=== PATIENT | female | born 1960 | race Caucasian/White ===

== ENCOUNTER 2023-04-01 06:43 | Day surgery (SDC) | payer BC ==
[~2023-04-01] VITALS: Ht 157.5 cm; Wt 77.1 kg
[~2023-04-01 06:43] MED LIST: ALBU8.5H INH; HYDR12.55 PO; LOSA50TA28 PO; SITA50TAB PO; THERTAB52 PO
[2023-04-01] MEDS ORDERED: LR 1,000 ML IV SCH (07:20)
[2023-04-01] MEDS ORDERED: GLUCOSE 4GM CHEW TABLET PO PRN (07:20)
[2023-04-01] MEDS ORDERED: GLUCAGON INJ 1MG VIAL SC PRN (07:20)
[2023-04-01] MEDS ORDERED: DEXTROSE 50% 50ML SYRINGE IV PRN (07:20)
[2023-04-01] MEDS ORDERED: INSULIN LISPRO (NovoLOG) PER UNIT SC PRN (07:20)
[2023-04-01] MEDS ORDERED: SUGAMMADEX SODIUM 500 MG/5 ML VIAL (BRIDION) As Ordered ONE (07:30)
[2023-04-01] MEDS ORDERED: propofoL 200 MG/20 ML VIAL As Ordered ONE (07:30)
[2023-04-01] MEDS ORDERED: ROCURONIUM BROMIDE 50MG/5ML VIAL As Ordered ONE (07:30)
[2023-04-01] MEDS ORDERED: GLYCOPYRROLATE INJ 0.2 MG/ML 2 ML VIAL As Ordered ONE (07:30)
[2023-04-01] MEDS ORDERED: ONDANSETRON 4MG 2ML VIAL As Ordered ONE (07:30)
[2023-04-01] MEDS ORDERED: MIDAZOLAM INJ 2MG/2ML VIAL As Ordered ONE (07:32)
[2023-04-01] MEDS ORDERED: fentaNYL 100 MCG/2 ML INJECTION As Ordered ONE (07:33)
[2023-04-01] MEDS ORDERED: LIDOCAINE 2% 100MG/5ML SDV (FOR ANES.) As Ordered ONE (07:34)
[2023-04-01] MEDS ORDERED: EPINEPHrine 1MG/10ML SYRINGE 1.5IN As Ordered ONE (08:09)
[2023-04-01] MEDS ORDERED: THROMBIN 5,000 UNITS VIAL As Ordered ONE (08:09)
[2023-04-01] MEDS ORDERED: CETACAINE SPRAY 5GM As Ordered ONE (08:09)
[2023-04-01] MEDS ORDERED: PHENYLephrine 500MCG 5ML (100MCG/ML) SYRINGE As Ordered ONE ×2 (08:52→09:19)
[2023-04-01] MEDS ORDERED: ALBUTEROL SULFATE 2.5MG/0.5ML INH NEB SOLN INH ONE (09:20)
[2023-04-01] MEDS ORDERED: ONDANSETRON 4MG 2ML VIAL IV PRN (09:20)
[2023-04-01] MEDS ORDERED: oxyCODONE 5MG TAB PO PRN (09:20)
[2023-04-01] MEDS ORDERED: METOCLOPRAMIDE INJ 10MG/2ML VIAL IV PRN (09:20)
[2023-04-01 10:54] VITALS: BP 141/65; TEMP 98.3; O2SAT 96
== END 2023-04-01 11:32 | disposition home or self-care (01) ==
LOC: M SDC 06:43
PROVIDERS: ATTEND Internal Medicine Pulmonary Disease
DX: C34.12 Malignant neoplasm of upper lobe, left bronchus or lung (principal); C77.9 Secondary and unspecified malignant neoplasm of lymph node, unspecified; F17.218 Nicotine dependence, cigarettes, with other nicotine-induced disorders; I10 Essential (primary) hypertension; E78.5 Hyperlipidemia, unspecified; E11.9 Type 2 diabetes mellitus without complications; Z79.51 Long term (current) use of inhaled steroids; Z79.899 Other long term (current) drug therapy; Z88.8 Allergy status to other drugs, medicaments and biological substances
CPT/HCPCS: 31625; 31653; 71045; 88173; 88305; J0171; J1100; J2250; J2371; J2405; J2765; J3010

== ENCOUNTER → 2023-04-13 | Outpatient (CLI) | payer BC | LOC: M PLARAD 08:53 | PROVIDERS: ATTEND Internal Medicine Pulmonary Disease | DX: R91.8 Other nonspecific abnormal finding of lung field (principal) | CPT/HCPCS: 78815; A9552 ==

== ENCOUNTER → 2023-04-16 | Outpatient (CLI) | payer BC | LOC: M RAD 08:09 | PROVIDERS: ATTEND Internal Medicine Pulmonary Disease | DX: C34.12 Malignant neoplasm of upper lobe, left bronchus or lung (principal) ==

== ENCOUNTER → 2023-04-30 | Outpatient (CLI) | payer BC ==
[~2023-04-30] MED LIST changes: +ATIV1TAB10 PO; +FAMO20TA5 PO; +ONDA-84 PO; +PROC10TA5 PO
== END ==
LOC: M ONCR 12:33
PROVIDERS: ATTEND General Practice
DX: C34.12 Malignant neoplasm of upper lobe, left bronchus or lung (principal); F17.210 Nicotine dependence, cigarettes, uncomplicated; Z71.2 Person consulting for explanation of examination or test findings; Z63.4 Disappearance and death of family member; Z80.1 Family history of malignant neoplasm of trachea, bronchus and lung; Z79.899 Other long term (current) drug therapy; Z80.3 Family history of malignant neoplasm of breast; Z80.49 Family history of malignant neoplasm of other genital organs; Z80.8 Family history of malignant neoplasm of other organs or systems; Z88.1 Allergy status to other antibiotic agents; Z92.21 Personal history of antineoplastic chemotherapy

== ENCOUNTER → 2023-05-22 | Outpatient (CLI) | payer BC ==
[~2023-05-22] VITALS: Ht 157.5 cm; Wt 77.1 kg
[~2023-05-22] MED LIST changes: +LIDOCAINE 1% MDV 20ML VIAL As Ordered ONE; +LIDOCAINE W/EPINEPHRINE 1% 20ML VIAL As Ordered ONE; +MIDAZOLAM INJ 2MG/2ML VIAL As Ordered ONE; +ceFAZolin 2 GM/D5W 50 ML IV BAG As Ordered ONE; +fentaNYL 100 MCG/2 ML INJECTION As Ordered ONE
[2023-05-22 07:29] VITALS: TEMP 98.6
[2023-05-22] MEDS: NS 1,000 ML IV SCH (08:16)
[2023-05-22] MEDS: ceFAZolin SOD 2 GM in IV 1 EA IV ONE (08:16)
[2023-05-22 09:45] VITALS: BP 154/76; O2SAT 91
== END ==
LOC: M IRPRO 07:13
PROVIDERS: ATTEND Internal Medicine Medical Oncology
DX: C34.90 Malignant neoplasm of unspecified part of unspecified bronchus or lung (principal)
CPT/HCPCS: 36561; 99152; 99153; J0690; J2250; J3010

== ENCOUNTER → 2023-06-04 | Outpatient (RCR) | payer BC ==
[~2023-06-04] MED LIST changes: -LIDOCAINE 1% MDV 20ML VIAL As Ordered ONE; -LIDOCAINE W/EPINEPHRINE 1% 20ML VIAL As Ordered ONE; -MIDAZOLAM INJ 2MG/2ML VIAL As Ordered ONE; -ceFAZolin 2 GM/D5W 50 ML IV BAG As Ordered ONE; -fentaNYL 100 MCG/2 ML INJECTION As Ordered ONE
== END ==
LOC: M ONCR 05-08 10:28
PROVIDERS: ATTEND General Practice
DX: Z51.0 Encounter for antineoplastic radiation therapy (principal); C34.12 Malignant neoplasm of upper lobe, left bronchus or lung

== ENCOUNTER 2023-06-30 09:23 | Outpatient (RCR) | payer BC ==
[~2023-06-30 09:23] MED LIST changes: +LIDO30CR18 TOP
[2023-07-06] MEDS ORDERED: MAGN400T35 PO (15:09)
== END 2023-07-05 ==
LOC: M ONCR 09:23
PROVIDERS: ATTEND General Practice
DX: Z51.0 Encounter for antineoplastic radiation therapy (principal); C34.12 Malignant neoplasm of upper lobe, left bronchus or lung
CPT/HCPCS: 77336; 77386; G0463

== ENCOUNTER → 2023-07-23 | Outpatient (CLI) | payer BC ==
[~2023-07-23] MED LIST changes: +MAGN400T35 PO; +PROHANCE 279.3MG/ML 15ML VIAL As Ordered ONE
== END ==
LOC: M RAD 08:36
PROVIDERS: ATTEND General Practice
DX: C34.12 Malignant neoplasm of upper lobe, left bronchus or lung (principal)

== ENCOUNTER → 2023-10-30 | Outpatient (CLI) | payer MEDICARE, BC ==
[~2023-10-30] MED LIST changes: +ASPI81CH33 PO; +ATOR40TA75; +NICO21DI37; -PROHANCE 279.3MG/ML 15ML VIAL As Ordered ONE; +SERT25TA21
== END ==
LOC: M ONCR 13:16
PROVIDERS: ATTEND General Practice
DX: C34.12 Malignant neoplasm of upper lobe, left bronchus or lung (principal); I69.954 Hemiplegia and hemiparesis following unspecified cerebrovascular disease affecting left non-dominant side; Z79.82 Long term (current) use of aspirin; Z79.899 Other long term (current) drug therapy; Z87.891 Personal history of nicotine dependence; Z88.8 Allergy status to other drugs, medicaments and biological substances; Z92.21 Personal history of antineoplastic chemotherapy; Z92.3 Personal history of irradiation

== ENCOUNTER → 2024-01-22 | Outpatient (CLI) | payer BC, MEDICARE ==
[~2024-01-22] MED LIST changes: +LIDOCAINE 1% MDV 20ML VIAL As Ordered ONE; +MIDAZOLAM INJ 2MG/2ML VIAL As Ordered ONE; +NS 1,000 ML IV SCH; +ceFAZolin 2 GM/D5W 50 ML IV BAG As Ordered ONE; +ceFAZolin SOD 2 GM in IV 1 EA IV ONE; +fentaNYL 100 MCG/2 ML INJECTION As Ordered ONE
[2024-01-22 12:10] VITALS: TEMP 97.8
[2024-01-22 14:50] VITALS: BP 178/84; O2SAT 95
== END ==
LOC: M IRPRO 12:02
PROVIDERS: ATTEND Internal Medicine Medical Oncology
DX: C34.90 Malignant neoplasm of unspecified part of unspecified bronchus or lung (principal)
CPT/HCPCS: 36590; 99152; J0690; J2250; J3010

== ENCOUNTER → 2024-03-25 | Outpatient (CLI) | payer BC, MEDICARE ==
[~2024-03-25] MED LIST changes: +FAMO1TAB11; -LIDOCAINE 1% MDV 20ML VIAL As Ordered ONE; -MIDAZOLAM INJ 2MG/2ML VIAL As Ordered ONE; -NS 1,000 ML IV SCH; +SERT50TA29; -ceFAZolin 2 GM/D5W 50 ML IV BAG As Ordered ONE; -ceFAZolin SOD 2 GM in IV 1 EA IV ONE; -fentaNYL 100 MCG/2 ML INJECTION As Ordered ONE
== END ==
LOC: M ONCR 14:18
PROVIDERS: ATTEND General Practice
DX: C34.12 Malignant neoplasm of upper lobe, left bronchus or lung (principal); Z87.891 Personal history of nicotine dependence; Z92.21 Personal history of antineoplastic chemotherapy; Z92.3 Personal history of irradiation; Z88.1 Allergy status to other antibiotic agents; Z79.82 Long term (current) use of aspirin; Z79.899 Other long term (current) drug therapy; Z79.84 Long term (current) use of oral hypoglycemic drugs

== ENCOUNTER → 2024-04-19 | Outpatient (CLI) | payer MEDICARE | LOC: M PLARAD 13:25 | PROVIDERS: ATTEND Internal Medicine Medical Oncology | DX: C34.12 Malignant neoplasm of upper lobe, left bronchus or lung (principal) | CPT/HCPCS: 78815; A9552 ==

== ENCOUNTER → 2024-05-05 | Outpatient (CLI) | payer MEDICARE | LOC: M ONCR 10:22 | PROVIDERS: ATTEND General Practice | DX: C34.12 Malignant neoplasm of upper lobe, left bronchus or lung (principal); Z87.891 Personal history of nicotine dependence; Z92.21 Personal history of antineoplastic chemotherapy; Z92.3 Personal history of irradiation; Z86.73 Personal history of transient ischemic attack (TIA), and cerebral infarction without residual deficits; Z88.1 Allergy status to other antibiotic agents; Z79.82 Long term (current) use of aspirin; Z79.899 Other long term (current) drug therapy; Z79.84 Long term (current) use of oral hypoglycemic drugs ==

== ENCOUNTER 2024-06-01 15:15 | Outpatient (RCR) | payer MEDICARE ==
[2024-06-01] MEDS ORDERED: FLUC100T3 PO (15:40)
== END 2024-06-03 ==
LOC: M ONCR 15:15
PROVIDERS: ATTEND General Practice
DX: Z51.0 Encounter for antineoplastic radiation therapy (principal); C34.12 Malignant neoplasm of upper lobe, left bronchus or lung

== ENCOUNTER 2024-06-15 07:25 | Day surgery (SDC) | payer MEDICARE ==
[~2024-06-15] VITALS: Ht 154.9 cm; Wt 67.9 kg
[~2024-06-15 07:25] MED LIST changes: +FLUC100T3 PO
[2024-06-15] MEDS ORDERED: LIDOCAINE 2% 100MG/5ML SDV (FOR ANES.) As Ordered ONE (07:57)
[2024-06-15] MEDS ORDERED: propofoL 200 MG/20 ML VIAL As Ordered ONE (07:57)
[2024-06-15] MEDS ORDERED: ONDANSETRON 4MG 2ML VIAL As Ordered ONE (07:57)
[2024-06-15] MEDS ORDERED: ROCURONIUM BROMIDE 50MG/5ML VIAL As Ordered ONE (07:57)
[2024-06-15] MEDS ORDERED: SUGAMMADEX SODIUM 500 MG/5 ML VIAL (BRIDION) As Ordered ONE (07:57)
[2024-06-15] MEDS ORDERED: MIDAZOLAM INJ 2MG/2ML VIAL As Ordered ONE (08:01)
[2024-06-15] MEDS ORDERED: fentaNYL 100 MCG/2 ML INJECTION As Ordered ONE (08:01)
[2024-06-15] MEDS: LR 1,000 ML IV SCH (08:38)
[2024-06-15] MEDS: ALBUTEROL SULFATE 2.5MG/0.5ML INH CONCENTRATE NEB SOLN INH ONE (08:38)
[2024-06-15] MEDS: LIDOCAINE PRES-FREE 2% 10ML AMP INH ONE (08:38)
[2024-06-15] MEDS: THROMBIN 5,000 UNITS VIAL As Ordered ONE (08:50)
[2024-06-15] MEDS: EPINEPHrine 1MG/10ML SYRINGE 1.5IN As Ordered ONE (08:50)
[2024-06-15] MEDS ORDERED: METOCLOPRAMIDE INJ 10MG/2ML VIAL As Ordered ONE (09:07)
[2024-06-15] MEDS: CETACAINE SPRAY 5GM As Ordered ONE (09:17)
[2024-06-15] MEDS ORDERED: ACETAMINOPHEN 1000MG/100ML IV BAG As Ordered ONE (09:17)
[2024-06-15] MEDS ORDERED: PHENYLephrine 500MCG 5ML (100MCG/ML) SYRINGE As Ordered ONE (09:21)
[2024-06-15] MEDS ORDERED: MORPHINE 2 MG/ML 1ML VIAL IV PRN (09:45)
[2024-06-15] MEDS ORDERED: ONDANSETRON 4MG 2ML VIAL IV PRN (09:45)
[2024-06-15] MEDS ORDERED: oxyCODONE 5MG TAB PO PRN (09:45)
[2024-06-15] MEDS ORDERED: fentaNYL 100 MCG/2 ML INJECTION IV PRN (09:45)
[2024-06-15 12:04] VITALS: BP 123/64; TEMP 98.2; O2SAT 92
== END 2024-06-15 12:13 | disposition home or self-care (01) ==
LOC: M SDC 07:25
PROVIDERS: ATTEND Internal Medicine Pulmonary Disease
DX: R91.8 Other nonspecific abnormal finding of lung field (principal); J44.9 Chronic obstructive pulmonary disease, unspecified; Z85.118 Personal history of other malignant neoplasm of bronchus and lung; E11.9 Type 2 diabetes mellitus without complications; I10 Essential (primary) hypertension; E78.00 Pure hypercholesterolemia, unspecified; I69.354 Hemiplegia and hemiparesis following cerebral infarction affecting left non-dominant side; Z79.82 Long term (current) use of aspirin; Z79.899 Other long term (current) drug therapy; Z92.21 Personal history of antineoplastic chemotherapy; Z92.3 Personal history of irradiation; F17.210 Nicotine dependence, cigarettes, uncomplicated; Z88.1 Allergy status to other antibiotic agents
CPT/HCPCS: 31622; J0131; J1100; J2250; J2371; J2405; J2765; J3010

== ENCOUNTER → 2024-12-19 | Outpatient (CLI) | payer MEDICARE | LOC: M ONCR 12:32 | PROVIDERS: ATTEND General Practice | DX: C34.12 Malignant neoplasm of upper lobe, left bronchus or lung (principal); Z87.891 Personal history of nicotine dependence; Z92.21 Personal history of antineoplastic chemotherapy; Z92.3 Personal history of irradiation; Z86.73 Personal history of transient ischemic attack (TIA), and cerebral infarction without residual deficits; Z88.1 Allergy status to other antibiotic agents; Z79.82 Long term (current) use of aspirin; Z79.84 Long term (current) use of oral hypoglycemic drugs; Z79.899 Other long term (current) drug therapy ==

== ENCOUNTER → 2025-03-21 | Outpatient (CLI) | payer MEDICARE | LOC: M ONCR 12:58 | PROVIDERS: ATTEND General Practice | DX: C34.12 Malignant neoplasm of upper lobe, left bronchus or lung (principal); Z87.891 Personal history of nicotine dependence; Z92.21 Personal history of antineoplastic chemotherapy; Z92.3 Personal history of irradiation; Z88.1 Allergy status to other antibiotic agents; Z79.82 Long term (current) use of aspirin; Z79.84 Long term (current) use of oral hypoglycemic drugs; Z79.899 Other long term (current) drug therapy ==